=== PATIENT | male | born 1995 | race Caucasian/White ===

== ENCOUNTER 2022-11-05 12:33 | Inpatient (IN) | payer OTHER, BC ==
[~2022-11-05] VITALS: Ht 185.4 cm; Wt 81.7 kg
[~2022-11-05 12:33] MED LIST: CODACE30 PO; OXYACE5T PO; RXOXYACE PO
[2022-11-05 13:12] LABS: BASOPHILS ABSOLUTE AUTO 0.04 K/mm3 (0.00-0.23); BASOPHILS PERCENT AUTO 0 % (0-2); EOSINOPHILS ABSOLUTE AUTO 0.03 K/mm3 (0.00-0.68); EOSINOPHILS PERCENT AUTO 0 % (0-6); Hematocrit 43.5 % (37.0-53.0); Hemoglobin 15.3 g/dL (13.5-17.5); IMMATURE GRAN ABSOLUTE AUTO 0.03 K/mm3 (0.00-0.10); IMMATURE GRAN PERCENT AUTO 0 % (0-1); LYMPHOCYTES ABSOLUTE AUTO 1.85 K/mm3 (0.84-5.20); LYMPHOCYTES PERCENT AUTO 20 % (21-46); MONOCYTES ABSOLUTE AUTO 0.74 K/mm3 (0.16-1.47); MONOCYTES PERCENT AUTO 8 % (4-13); Mean Corpuscular HGB 32.6 pg (26.0-34.0); Mean Corpuscular HGB Conc 35.2 g/dL (31.5-36.5); Mean Corpuscular Volume 93 fL (80-100); Mean Platelet Volume 10.8 fL (9.1-12.4); NEUTROPHILS ABSOLUTE AUTO 6.47 K/mm3 (1.96-9.15); NEUTROPHILS PERCENT AUTO 71 % (41-73); Platelet Count 174 K/mm3 (150-400); RDW Coefficient Variation 12.4 % (11.7-14.2); White Blood Cell Count 9.16 K/mm3 (4.00-11.30)
[2022-11-05 13:21] LABS: Bun/Creatinine Ratio 15.3 (12.0-20.0); Calcium, Blood 8.5 mg/dL (8.5-10.1); Creatinine, Blood 0.78 mg/dL (0.60-1.20); Potassium, Blood 3.2 mmol/L (3.5-5.5)
[2022-11-05 14:04] LABS: International Normalized Ratio 0.99; Prothrombin Time Results 10.4 Sec (9.7-11.5)
--- NOTE | 2022-11-05 16:00 | NUR ---
PT ARRIVED TO UNIT AT APROX 1545 FROM ER. LLE IN SPLINT. PT C/O 07/07 PAIN AFTER TX, GIVEN 1MG DILAUDID. PT NPO AT THIS TIME.
--- NOTE | 2022-11-05 18:04 | NUR ---
PT TO OR AT APROX 1806
--- NOTE | 2022-11-05 18:25 | NUR ---
History, Chart, Medications and Allergies reviewed before start of procedure. Lungs FAINT EXP WHEEZES IN THE BASES. Patient confirms NPO status and agrees with scheduled surgery. Pre-Op teaching done. Pt verbalizes understanding. REPORT TO CHANDU WILLIAM.
--- NOTE | 2022-11-05 22:52 | NUR ---
ARRIVAL PT ARRIVED FROM ICU RECOVERY. REPORTS 8/10 PAIN, A/0X4. SATS >90% ON RA. VSS. REPORTS GREY STOCK RECORDER N/T IN RLE, CAN WIGGLE TOES. PT NOTED TO BE VERY DIAPHORETIC. MEDICATED PER EMAR. PLAN TO CONTINUE POST OP VS AND MANAGE PAIN WITH PRN'S. WILL REACH OUT TO DR DELUNA WITH FURTHER CONCERNS.
--- NOTE | 2022-11-06 00:36 | NUR ---
CIWA PT REPORTS INCREASING ANXIETY, INCREASING AND NONSTOP SWEATING. DR DELUNA CONTACTED ABOUT CIWA SCORE GOING FROM 2 TO 10, ORDER OBTAINED FOR LIBRIUM AND ATIVAN. PLAN TO MEDICATE AND CONTACT WITH FURTHER CONCERNS
--- NOTE | 2022-11-06 04:23 | NUR ---
POD0 RIGHT TIBIA NAILING. SENSATION AND CIRCULATION REMAINS INTACT. DRESSING REMAINS C/D/I. VSS. PT SLEPT ON AND OFF T/O THE NIGHT. PAIN WAS DIFFICULT TO MANAGE UPON ARROVING TO THE FLOOR BUT HAS SINCE BEEN UNDER CONTROL. SINCE STATING LIBRIUM THE PATIENT REPORTS A SIGNIFIGANT DECREASE IN ANXIETY AND SWEATING. PT TOLLERATING PO INTAKE W/O DIFFICULTY. VOIDING INTO URINAL. PT DID NOT GET OOB YET, IS NWB IN RLE. PLAN FOR PT TO WORK WITH PT TODAY. THE PATIENT IS CURRENTLY RESTING IN BED, IN NO DISTRESS, CALL LIGHT IN REACH
--- NOTE | 2022-11-06 18:20 | NUR ---
SHIFT SUMMARY PT POD 1 ORIF R OPEN TIB/FIB FX. DRESSING REINFORCED THIS AM, NO ADDITIONAL DRAINAGE NOTED ON NEW DRESSING. PAIN WELL MANAGED WITH PO ROXICODONE AND SCHEDULED TYLENOL AND TORADOL. PT WORKED WITH PT THIS AFTERNOON AND HAS BEEN UP TO CHAIR. TOLERATING REGULAR DIET WITH NO N/V. CIWA SCORE BETWEEN 8-11 T/O SHIFT SO HAS CONTINUED TO RECIEVE LIBRIUM ORDERED FOR CIWA SCORES. VSS T/O SHIFT.
--- NOTE | 2022-11-07 04:08 | NUR ---
SHIFT SUMMARY NO ACUTE CHANGES. ROXICODONE/TORADOL/TYLENOL FOR PAIN MANAGEMENT. RIGHT LEG DRESSING REMAINS UNCHANGED AND ELEVATED ON PILLOWS. PT USING URINAL TO VOID. LIBRIUM GIVEN PRN FOR ETOH WITHDRAWAL SYMPTOMS. CIWA SCORES STABLE. PT ONLY REPORTING MILD SWEATING AND HAS NOTICEABLE TREMORS WHILE ARMS EXTENDED. PT RESTED WELL AND VSS. CALL LIGHT WITHIN REACH.
[2022-11-07] MEDS ORDERED: OXYC15ER PO (13:57)
[2022-11-07] MEDS ORDERED: AMOCLA500 PO (13:57)
--- NOTE | 2022-11-07 14:27 | NUR ---
DISCHARGE NOTE: PATIENT AND PATIENTS MOTHER WERE EDUCATED ON DISCHARGE INSTRUCTIONS. BOTH VERBALIZED UNDERSTANDING OF INSTRUCTIONS AND HAD NO FURTHER QUESTIONS. HARD PERSCRIPTIONS WERE PLACED IN THE INSTRUCTIONS FOLDER. BOTH IVS WERE TAKEN OUT AND WNL. PAIN IS MANAGED WITH ORAL PAIN MEDICATIONS. DR. DELUNA JUST CAME BY AND CHANGED HIS CAST/SPLINT AND IS C/D/I. HE DENIES NUMBNESS OR TINGLING IN ALL EXTREMITIES. HE IS A SBA WITH FWW AND GAIT BELT. PATIENT IS DRESSED AND HAS PERSONAL ITEMS IN THE ROOM GATHERED. HE IS BEING WHEELCHAIRED OUT TO HIS MOTHERS CAR TO BE TAKEN HOME.
--- NOTE | 2022-11-07 14:33 | NUR ---
HE IS TOLERATING PO INTAKE AND IS VOIDING WELL.
== END 2022-11-07 14:32 | disposition home health service (06) | DRG 494 ==
LOC: ER 12:33 → SURS 14:30
PROVIDERS: Student in an Organized Health Care Education/Training Program; ADMIT Orthopaedic Surgery
PROC: 2W3LX1Z Immobilization of Right Lower Extremity using Splint (ICD-10-PCS; 2022-11-05)
PROC: 0QSG06Z Reposition Right Tibia with Intramedullary Internal Fixation Device, Open Approach (ICD-10-PCS; principal; 2022-11-05 18:00)
DX: S82.301B Unspecified fracture of lower end of right tibia, initial encounter for open fracture type I or II (principal); S82.831A Other fracture of upper and lower end of right fibula, initial encounter for closed fracture; F10.10 Alcohol abuse, uncomplicated; F12.10 Cannabis abuse, uncomplicated; F17.210 Nicotine dependence, cigarettes, uncomplicated; W20.8XXA Other cause of strike by thrown, projected or falling object, initial encounter; Z79.891 Long term (current) use of opiate analgesic
CPT/HCPCS: 27752; 36415; 73590; 80048; 85025; 85610; 85730; 86850; 86900; 86901; 90471; 90714; 96374-59; 96375-59; 96376-59; 97110; 97116; 97161; 99152; 99153; 99285-25; A9270; C1713; C1769; J0690; J1100; J1170; J1885; J2405; J2704; J3010; J7120

== ENCOUNTER 2023-03-29 19:43 | Emergency (ER) | payer BC ==
[~2023-03-29] VITALS: Ht 175.3 cm; Wt 81.7 kg
[~2023-03-29 19:43] MED LIST changes: +AMOCLA500 PO; +OXYC15ER PO
[2023-03-29 20:24] LABS: BASOPHILS ABSOLUTE AUTO 0.09 K/mm3 (0.00-0.23); BASOPHILS PERCENT AUTO 1 % (0-2); EOSINOPHILS ABSOLUTE AUTO 0.05 K/mm3 (0.00-0.68); EOSINOPHILS PERCENT AUTO 0 % (0-6); Hematocrit 46.6 % (37.0-53.0); Hemoglobin 17.2 g/dL (13.5-17.5); IMMATURE GRAN ABSOLUTE AUTO 0.06 K/mm3 (0.00-0.10); IMMATURE GRAN PERCENT AUTO 0 % (0-1); LYMPHOCYTES ABSOLUTE AUTO 1.63 K/mm3 (0.84-5.20); LYMPHOCYTES PERCENT AUTO 12 % (21-46); MONOCYTES ABSOLUTE AUTO 0.66 K/mm3 (0.16-1.47); MONOCYTES PERCENT AUTO 5 % (4-13); Mean Corpuscular HGB 32.1 pg (26.0-34.0); Mean Corpuscular HGB Conc 36.9 g/dL (31.5-36.5); Mean Corpuscular Volume 87 fL (80-100); Mean Platelet Volume 10.2 fL (9.1-12.4); NEUTROPHILS ABSOLUTE AUTO 11.48 K/mm3 (1.96-9.15); NEUTROPHILS PERCENT AUTO 82 % (41-73); Platelet Count 188 K/mm3 (150-400); RDW Coefficient Variation 13.5 % (11.7-14.2); RDW Standard Deviation 42.7 fL (35.1-46.3); Red Blood Cell Count 5.35 M/mm3 (4.30-5.90); White Blood Cell Count 13.97 K/mm3 (4.00-11.30)
[2023-03-29 22:13] LABS: Albumin, Blood 4.3 g/dL (3.4-5.0); Albumin/Globulin Ratio 1.2 (0.8-1.8); Bun/Creatinine Ratio 7.9 (12.0-20.0); Calcium, Blood 9.4 mg/dL (8.5-10.1); Creatinine, Blood 0.76 mg/dL (0.60-1.20); Globulin, Blood 3.5 g/dL (2.2-4.0); Potassium, Blood 3.3 mmol/L (3.5-5.5); Total Protein, Blood 7.8 g/dL (6.4-8.2)
[2023-03-29 22:59] LABS: Source, Urine Clean Catch
[2023-03-29 23:09] LABS: Bilirubin, Urine Neg (Neg); Blood, Urine 1+ (Neg); Glucose Qualitative, Urine Neg (Neg); Ketones, Urine Neg (Neg); Leukocyte Esterase, Urine 1+ (Neg); Nitrite, Urine Neg (Neg); Protein, Urine 2+ (Neg); Urobilinogen, Urine 1+ (Normal)
[2023-03-29 23:16] LABS: Appearance, Urine Clear (Clear); Color, Urine Yellow (P-Yellow)
[2023-03-29 23:19] LABS: Bacteria Not Seen /hpf; Mucus Light (0-Heavy); Red Blood Cells, Urine 0-2 /hpf (0-2); Squamous Epithelial Cells Rare /hpf (Few); White Blood Cells, Urine 0-2 /hpf (0-5)
[2023-03-30] MEDS ORDERED: ONDA4ODT MM ×2 (00:40→00:41)
[2023-03-30] MEDS ORDERED: OXAYDO5 M1 PO ×2 (00:40→00:41)
[2023-03-30 01:04] VITALS: BP 157/103
== END 2023-03-30 01:01 | disposition home or self-care (01) ==
LOC: ER 19:43
PROVIDERS: Emergency Medicine
DX: K85.90 Acute pancreatitis without necrosis or infection, unspecified (principal); F10.90 Alcohol use, unspecified, uncomplicated; Z87.891 Personal history of nicotine dependence
CPT/HCPCS: 74177; 80053; 81001; 83690; 85025; 96361; 96374-59; 99284-25; A9270; J1885; J2405; J7030; Q9967

== ENCOUNTER 2023-11-19 19:33 | Emergency (ER) | payer BC ==
[~2023-11-19] VITALS: Ht 175.3 cm; Wt 81.7 kg
[~2023-11-19 19:33] MED LIST changes: +ONDA4ODT MM; +OXAYDO5 M1 PO
[2023-11-19 20:11] LABS: BASOPHILS ABSOLUTE AUTO 0.07 K/mm3 (0.00-0.23); BASOPHILS PERCENT AUTO 1 % (0-2); EOSINOPHILS ABSOLUTE AUTO 0.03 K/mm3 (0.00-0.68); EOSINOPHILS PERCENT AUTO 1 % (0-6); Hemoglobin 19.4 g/dL (13.5-17.5); IMMATURE GRAN ABSOLUTE AUTO 0.05 K/mm3 (0.00-0.10); IMMATURE GRAN PERCENT AUTO 1 % (0-1); LYMPHOCYTES ABSOLUTE AUTO 1.96 K/mm3 (0.84-5.20); LYMPHOCYTES PERCENT AUTO 34 % (21-46); MONOCYTES ABSOLUTE AUTO 0.67 K/mm3 (0.16-1.47); MONOCYTES PERCENT AUTO 12 % (4-13); Mean Corpuscular HGB 33.2 pg (26.0-34.0); Mean Corpuscular HGB Conc 37.3 g/dL (31.5-36.5); Mean Corpuscular Volume 89 fL (80-100); Mean Platelet Volume 10.2 fL (9.1-12.4); NEUTROPHILS ABSOLUTE AUTO 3.02 K/mm3 (1.96-9.15); NEUTROPHILS PERCENT AUTO 52 % (41-73); Platelet Count 175 K/mm3 (150-400); RDW Coefficient Variation 12.8 % (11.7-14.2); Red Blood Cell Count 5.85 M/mm3 (4.30-5.90)
[2023-11-19 20:56] LABS: Albumin, Blood 3.8 g/dL (3.4-5.0); Albumin/Globulin Ratio 0.8 (0.8-1.8); Bilirubin, Total 0.6 mg/dL (0.1-1.0); Bun/Creatinine Ratio 9.8 (12.0-20.0); Calcium, Blood 8.5 mg/dL (8.5-10.1); Creatinine, Blood 0.61 mg/dL (0.60-1.20); Globulin, Blood 4.5 g/dL (2.2-4.0); Total Protein, Blood 8.3 g/dL (6.4-8.2)
[2023-11-20] MEDS ORDERED: CHLO25 PO (00:12)
[2023-11-20 00:24] LABS: Source, Urine Clean Catch
[2023-11-20 00:37] LABS: Bilirubin, Urine Neg (Neg); Blood, Urine 3+ (Neg); Glucose Qualitative, Urine Neg (Neg); Ketones, Urine Neg (Neg); Leukocyte Esterase, Urine Neg (Neg); Nitrite, Urine Neg (Neg); Protein, Urine 3+ (Neg); Specific Gravity, Urine 1.015 (1.003-1.022); Urobilinogen, Urine 1+ (Normal); pH, Urine 6.5 (5.0-8.0)
[2023-11-20 01:25] LABS: Appearance, Urine Clear (Clear); Color, Urine Yellow (P-Yellow); Red Blood Cells, Urine 0-2 /hpf (0-2); Squamous Epithelial Cells Mod /hpf (Few); White Blood Cells, Urine 0-2 /hpf (0-5)
[2023-11-20 01:26] LABS: Bacteria Few /hpf; Mucus Light (0-Heavy)
[2023-11-20 01:45] VITALS: BP 133/70
== END 2023-11-20 02:10 | disposition home or self-care (01) ==
LOC: ER 19:33
PROVIDERS: Emergency Medicine; Student in an Organized Health Care Education/Training Program
DX: F10.20 Alcohol dependence, uncomplicated (principal); Y90.8 Blood alcohol level of 240 mg/100 ml or more; R74.01 Elevation of levels of liver transaminase levels; E86.0 Dehydration; R10.13 Epigastric pain; R10.11 Right upper quadrant pain; Z87.891 Personal history of nicotine dependence; Z87.19 Personal history of other diseases of the digestive system
CPT/HCPCS: 76705; 80053; 81001; 83690; 85025; 93005; 93010; 96361; 96374; 99284-25; A9270; J3010; J7030